=== PATIENT | male | born 1960 | race Caucasian/White ===

== ENCOUNTER 2018-08-23 06:01 | Emergency (ER) | payer OTHER ==
[~2018-08-23] VITALS: Ht 193 cm; Wt 113.4 kg
[~2018-08-23 06:01] MED LIST: FINA5 PO; TERA5 PO
[2018-08-23] MEDS ORDERED: TAMS.4ER PO (06:28)
[2018-08-23] MEDS ORDERED: CYCL10 PO (06:28)
== END 2018-08-23 08:57 | disposition home or self-care (01) ==
LOC: ER 06:01
DX: G51.0 Bell's palsy (principal); Z87.891 Personal history of nicotine dependence
CPT/HCPCS: 70450; 99284-25

== ENCOUNTER 2019-05-26 07:06 | Day surgery (SDC) | payer OTHER ==
[~2019-05-26] VITALS: Ht 190.5 cm; Wt 130.3 kg
[~2019-05-26 07:06] MED LIST changes: +CYCL10 PO; +TAMS.4ER PO
--- NOTE | 2019-05-26 07:25 | NUR ---
History, Chart, Medications and Allergies reviewed before start of procedure. Patient confirms NPO status and agrees with scheduled surgery. Reports taking all of colon prep with clear results. Patient States Post-Procedure ride home has been arranged with his .
[2019-05-26] MEDS ORDERED: Milk Thistle150 MG PO (07:32)
--- NOTE | 2019-05-26 08:07 | NUR ---
05/26/19 0807 Michelle Donahue History, Chart, Medications and Allergies reviewed before start of procedure. Patient confirms NPO status and agrees with scheduled surgery. PATIENT DETERMINED TO BE ASA APPROPRIATE FOR MODERATE SEDATION PRIOR TO START OF PROCEDURE BY DR. DAVIS. 3-LEAD EKG REVIEWED WITH PHYSICIAN PRIOR TO START OF PROCEDURE. MONITOR INTACT WITH CONTINUOUS PULSE OXIMETRY AND INTERMITTENT BP.
--- NOTE | 2019-05-26 09:04 | NUR ---
Discharge instructions reviewed with patient. Patient verbalizes understanding. Copy given to patient to take home. Patient up to Ambulate independently. Gait steady. Discharged via wheelchair to private car for ride home WITH
== END 2019-05-26 22:50 | disposition home or self-care (01) ==
LOC: ORSCMMR 07:06 → ORD 08:00 → ORSCMMR 22:50
PROVIDERS: Internal Medicine Gastroenterology
PROC: 0DBL8ZX Excision of Transverse Colon, Via Natural or Artificial Opening Endoscopic, Diagnostic (ICD-10-PCS; principal; 2019-05-26 08:00)
DX: Z12.11 Encounter for screening for malignant neoplasm of colon (principal); D12.3 Benign neoplasm of transverse colon; K57.30 Diverticulosis of large intestine without perforation or abscess without bleeding; Z86.010 Personal history of colon polyps; G47.33 Obstructive sleep apnea (adult) (pediatric); Z87.891 Personal history of nicotine dependence; Z80.0 Family history of malignant neoplasm of digestive organs; E66.9 Obesity, unspecified; Z68.36 Body mass index [BMI] 36.0-36.9, adult; N40.0 Benign prostatic hyperplasia without lower urinary tract symptoms; Z79.899 Other long term (current) drug therapy
CPT/HCPCS: 88305; J2250; J3010; J7120

== ENCOUNTER 2020-11-24 09:03 | Day surgery (SDC) | payer OTHER ==
[~2020-11-24] VITALS: Ht 190.5 cm; Wt 137.0 kg
[~2020-11-24 09:03] MED LIST changes: +Cyclobenzaprine10 MG PO; +Milk Thistle150 MG PO
--- NOTE | 2020-11-24 11:05 | NUR ---
[facility] in [facility] warming gown applied. History, Chart, Medications and Allergies reviewed before start of procedure.Lungs clear T/O to Auscultation. Patient confirms NPO status and agrees with scheduled surgery. ALL BELONINGS PLACED UNDER THE BED.
--- NOTE | 2020-11-24 13:17 | NUR ---
INTO STEP RECIEVED PATINET AND REPORT VSS STATES PAIN ABOUT 2/10 STARTED ON FLUIDS AND WILL GET CRACKERS AND PAIN RX
--- NOTE | 2020-11-24 14:05 | NUR ---
Discharge instructions reviewed with patient. Patient verbalizes understanding. Copy given to patient to take home. Discharged via wheelchair to private car for ride home.
== END 2020-11-24 22:50 | disposition home or self-care (01) ==
LOC: ORSCMMR 09:03 → ORD 10:30 → ORSCMMR 10:30
PROVIDERS: Surgery
PROC: 0WQF0ZZ Repair Abdominal Wall, Open Approach (ICD-10-PCS; principal; 2020-11-24 10:30)
DX: K42.0 Umbilical hernia with obstruction, without gangrene (principal); G47.33 Obstructive sleep apnea (adult) (pediatric); E78.5 Hyperlipidemia, unspecified; Z87.891 Personal history of nicotine dependence; Z79.899 Other long term (current) drug therapy; E66.01 Morbid (severe) obesity due to excess calories; Z68.37 Body mass index [BMI] 37.0-37.9, adult
CPT/HCPCS: A9270; J0690; J1100; J2405; J2704; J2765; J3010; J7120

== ENCOUNTER 2023-08-10 22:23 | Emergency (ER) | payer OTHER ==
[~2023-08-10] VITALS: Ht 190.5 cm; Wt 133.8 kg
[2023-08-10 22:43] VITALS: BP 124/88
[2023-08-11] MEDS ORDERED: HYDCHL25 (03:18)
== END 2023-08-11 00:13 | disposition home or self-care (01) ==
LOC: ER 22:23
DX: S82.001A Unspecified fracture of right patella, initial encounter for closed fracture (principal); W01.0XXA Fall on same level from slipping, tripping and stumbling without subsequent striking against object, initial encounter; Z88.8 Allergy status to other drugs, medicaments and biological substances; Z79.899 Other long term (current) drug therapy
CPT/HCPCS: 29515; 73562-RT; 99283-25; A9270